=== PATIENT | female | born 1950 | race Caucasian/White ===

== ENCOUNTER → 2024-02-14 15:04 | Outpatient (REF) | payer MEDICARE, SELFPAY | LOC: HWWDC 15:04 | PROVIDERS: ATTENDING PHYSICIAN Obstetrics & Gynecology Gynecologic Oncology; FAMILY PHYSICIAN Physician Assistant Medical | DX: Z12.31 Encounter for screening mammogram for malignant neoplasm of breast (principal) | CPT/HCPCS: 77063; 77067 ==